=== PATIENT | female | born 1960 | race Caucasian/White ===

== ENCOUNTER → 2022-02-27 | Outpatient (CLI) | payer OTHER | LOC: HEART 5 09:38 | DX: R06.02 Shortness of breath (principal); R06.00 Dyspnea, unspecified | CPT/HCPCS: 71046; 94010; 94729; 95012 ==

== ENCOUNTER → 2022-03-20 | Outpatient (CLI) | payer OTHER | LOC: KOH-I 11:46 | DX: R93.89 Abnormal findings on diagnostic imaging of other specified body structures (principal); R06.00 Dyspnea, unspecified; R91.8 Other nonspecific abnormal finding of lung field | CPT/HCPCS: 71250 ==

== ENCOUNTER → 2022-06-19 | Outpatient (CLI) | payer OTHER | LOC: KOH-I 12:52 | DX: R93.89 Abnormal findings on diagnostic imaging of other specified body structures (principal); R91.8 Other nonspecific abnormal finding of lung field | CPT/HCPCS: 71250 ==

== ENCOUNTER → 2022-07-25 | Outpatient (CLI) | payer OTHER ==
[~2022-07-25] MED LIST: ARTHRITIS PAIN150 GM TP; DIAZEPAM5 MG PO; FLOVENT 110.088 GM/I INH; FUROSEMIDE20 MG PO; HYDROCODON-ACE1 EAC2 PO; LEVOTHYROXINE50 MCG PO; LIORESAL TAB 1010 MG PO; LISINOPRIL2.5 MG PO; MONTELUKAST SOD10 MG PO; OMEPRAZOLE20 MG PO; OZEMPIC0.25 MG/0. SQ; PRAVASTATIN SOD20 MG PO; SERTRALINE HCL50 MG PO; TRAZODONE HCL150 MG PO
[2022-07-25 08:30] LABS: HEMOGLOBIN 13.6 gm/dl (12.3-15.3); RED BLOOD COUNT 4.43 M/UL (4.00-5.10); WHITE BLOOD COUNT 7.9 K/UL (4.5-11.0)
== END ==
LOC: CT 07-18 08:00 → OR 07-18 08:00 → CT 09:00
PROVIDERS: Radiology Diagnostic Radiology
DX: R93.89 Abnormal findings on diagnostic imaging of other specified body structures (principal); R91.1 Solitary pulmonary nodule
CPT/HCPCS: 71250; 85027; 85610